=== PATIENT | male | born 1970 | race Caucasian/White ===

== ENCOUNTER 2023-04-19 09:33 | Emergency (ER) | payer OTHER ==
[~2023-04-19] VITALS: Ht 177.8 cm; Wt 126.1 kg
[2023-04-19 09:42] VITALS: O2SAT 97
[2023-04-19] MEDS ORDERED: ULTRAM 50MG50 MG PO (10:12)
[2023-04-19] MEDS ORDERED: BACTRIM DS TAB1 EACH PO (10:12)
[2023-04-20] MEDS ORDERED: AMLODIPINE BESYL5 MG PO (18:24)
[2023-04-20] MEDS ORDERED: ATORVASTATIN CA20 MG PO (18:24)
[2023-04-20] MEDS ORDERED: CELEBREX200 MG PO (18:28)
[2023-04-20] MEDS ORDERED: LOSARTAN POTAS100 MG PO (18:28)
[2023-04-20] MEDS ORDERED: MELOXICAM7.5 MG PO (18:28)
[2023-04-20] MEDS ORDERED: PREDNISONE20 MG PO (18:28)
[2023-04-21] MEDS ORDERED: ADVAIR 250-501 EACH INH (13:04)
[2023-04-21] MEDS ORDERED: TADALAFIL10 MG PO (13:04)
[2023-04-21] MEDS ORDERED: ARIMIDEX1 MG PO (13:04)
[2023-04-21] MEDS ORDERED: ALBUTEROL INH (13:04)
[2023-04-21] MEDS ORDERED: ergocalciferol PO (13:04)
== END 2023-04-19 10:27 | disposition home or self-care (01) ==
LOC: ER 09:41
DX: M25.561 Pain in right knee (principal); M70.51 Other bursitis of knee, right knee; I10 Essential (primary) hypertension; E78.5 Hyperlipidemia, unspecified
CPT/HCPCS: 99283